=== PATIENT | female | born 1985 ===

== ENCOUNTER 2023-10-24 16:20 | Outpatient (CLI) | payer OTHER, SELFPAY ==
[2023-10-24 11:30] LABS: Abs Immature Grans 0.03 10^3/uL (0.0-0.06); Absolute Basophil Count 0.03 10^3/uL (0.0-0.2); Absolute Eosinophil Count 0.27 10^3/uL (0.0-0.7); Absolute Lymphocyte Count 2.01 10^3/uL (1.2-3.4); Absolute Monocyte Count 0.32 10^3/uL (0.1-0.8); Absolute Neutrophil Count 3.83 10^3/uL (1.2-6.7); Basophils % 0.5 %; Eosinophils % 4.2 %; HCT 39.3 % (36.0-46.0); Immature Grans % 0.5 %; MCH 30.3 pg (27.0-33.0); MCHC 33.1 % (32.0-36.0); MCV 92 fL (80-95); MPV 8.9 fL (8.0-11.0); Monocytes % 4.9 %; Neutrophils % 58.9 %; Platelet Count 414 10^3/uL (130-400); RBC 4.29 10^6/uL (3.93-5.22); RDW 12.6 % (11.7-14.6); WBC 6.49 10^3/uL (4.4-10.8)
[2023-10-24 12:16] LABS: ALT 20 U/L (14-59); AST 11 U/L (15-37); Albumin 3.7 g/dL (3.4-5.0); Alkaline Phosphatase 55 U/L (46-116); Anion Gap 8.5 mmol/L (3-11); BUN 11 mg/dL (7-18); Bilirubin, Total 0.13 mg/dL (0.2-1.0); CO2 27.5 mmol/L (21.0-32.0); CREATININE 0.8 mg/dL (0.55-1.02); Calculated LDL 87 mg/dL (<100); Chloride 103 mmol/L (98-107); Cholesterol 230 mg/dL (<200); Estimated GFR 95.46 (mL/min/1.73m2); Glucose 136 mg/dL (74-106); HDL Cholesterol 69 mg/dL (40-60); Magnesium 2.1 mg/dL (1.8-2.4); Sodium 139 mmol/L (136-145); Total Protein 7.9 g/dL (6.4-8.2); Triglyceride 371 mg/dL (<150)
== END 2023-10-24 16:21 | disposition home or self-care (01) ==
PROVIDERS: Visit Provider Student in an Organized Health Care Education/Training Program
DX: L50.1 Idiopathic urticaria (principal); Z51.81 Encounter for therapeutic drug level monitoring
CPT/HCPCS: 36415; 80053; 80061; 83735; 85025

== ENCOUNTER 2023-12-27 10:03 | Outpatient (CLI) | payer OTHER, SELFPAY ==
[2023-12-27 10:41] LABS: Abs Immature Grans 0.01 10^3/uL (0.0-0.06); Absolute Basophil Count 0.04 10^3/uL (0.0-0.2); Absolute Eosinophil Count 0.12 10^3/uL (0.0-0.7); Absolute Lymphocyte Count 1.97 10^3/uL (1.2-3.4); Absolute Monocyte Count 0.28 10^3/uL (0.1-0.8); Basophils % 0.8 %; Eosinophils % 2.4 %; HCT 39.7 % (36.0-46.0); HGB 13.1 g/dL (11.2-15.7); Immature Grans % 0.2 %; Lymphocytes % 39.2 %; MCH 30.3 pg (27.0-33.0); MCV 92 fL (80-95); MPV 8.8 fL (8.0-11.0); Monocytes % 5.6 %; Neutrophils % 51.8 %; Platelet Count 436 10^3/uL (130-400); RBC 4.32 10^6/uL (3.93-5.22); RDW-SD 40.5 fL; WBC 5.02 10^3/uL (4.4-10.8)
[2023-12-27 11:02] LABS: ALT 19 U/L (14-59); AST 13 U/L (15-37); Albumin 3.8 g/dL (3.4-5.0); Alkaline Phosphatase 63 U/L (46-116); BUN 11 mg/dL (7-18); Bilirubin, Total 0.52 mg/dL (0.2-1.0); Calcium 9.4 mg/dL (8.5-10.1); Calculated LDL 161 mg/dL (<100); Chloride 102 mmol/L (98-107); Cholesterol 269 mg/dL (<200); Estimated GFR 73.04 (mL/min/1.73m2); Glucose 123 mg/dL (74-106); HDL Cholesterol 78 mg/dL (40-60); Magnesium 2.2 mg/dL (1.8-2.4); Sodium 139 mmol/L (136-145); Total Protein 8.1 g/dL (6.4-8.2); Triglyceride 153 mg/dL (<150)
== END 2023-12-27 10:04 | disposition home or self-care (01) ==
LOC: LBO 10:04
PROVIDERS: Visit Provider Student in an Organized Health Care Education/Training Program
DX: Z51.81 Encounter for therapeutic drug level monitoring (principal); L50.1 Idiopathic urticaria
CPT/HCPCS: 36415; 80053; 80061; 83735; 85025

== ENCOUNTER 2024-02-06 10:14 | Outpatient (CLI) | payer OTHER, SELFPAY ==
[2024-02-08 12:11] LABS: HSV Type 1 Ab, IgG Positive (Negative); HSV Type 2 Ab, IgG Positive (Negative)
== END 2024-02-06 10:15 | disposition home or self-care (01) ==
LOC: LOS 10:15
PROVIDERS: Visit Provider Nurse Practitioner Family
DX: K13.70 Unspecified lesions of oral mucosa (principal); B00.1 Herpesviral vesicular dermatitis; K12.0 Recurrent oral aphthae
CPT/HCPCS: 36415; 86695; 86696

== ENCOUNTER 2024-05-30 00:25 | Outpatient (CLI) | payer MEDICAID, SELFPAY ==
--- NOTE | 2024-05-30 | DI.CT_ITS ---
Exam(s) CT LUMBAR SPINE WO EXAM: CT LUMBAR SPINE WO CLINICAL HISTORY: PARS DEFECT ON XRAY,M43.06,NEW ONSET SEVERE BACK PAIN,? DEFECT. TECHNIQUE: Imaging Protocol: Axial computed tomography images with coronal and sagittal reformatted images were created and reviewed COMPARISON: CR XR LUMBAR SPINE 4+ VIEWS from 05/28/2024 FINDINGS: Bones: The last intervertebral disc space is designated the L5/S1 level for the numbering purpose of this examination. The vertebral body heights are well maintained. 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 Alignment: No scoliosis. No significant spondylolisthesis. There is slight spondylolisthesis on the plain films which were performed in the standing position. T12-L1: No disc herniations or bulges are present. L1-2: No disc herniations or bulges are present. L2-3: No disc herniations or bulges are present. L3-4: No disc herniations or bulges are present. L4-5: No disc herniations or bulges are present. L5-S1: Mild loss of disc height. Mild disc bulging. Small central disc protrusion with superior ex trusion of disc material posterior to the L5 vertebral body. The visualized SI joints and sacrum are well maintained. Soft Tissues: The paraspinal soft tissues are unremarkable. The uterus is retroverted and shows an d anterior fibroid. IMPRESSION: Bilateral L5 spondylolysis. No spondylolisthesis visible on this supine exam. Small central disc protrusion at L5-S1 with superior extrusion of disc material. There is no definit e impingement on the thecal sac or nerve roots. No neural foraminal narrowing at any level. RADIATION DOSE DELIVERED: Total DLP DATA REPOSITORY: All CT scans at this facility are submitted to the National Radiology Data Registry (NRDR) Dose Index Registry (DIR) with the [employer] ([employer]). RADIATION OPTIMIZATION: All CT scans at this facility use at least one of these dose optimization te chniques: automated exposure control; mA and/or kV adjustment per patient size (includes targeted exa ms where dose is matched to clinical indication); or iterative reconstruction.
== END 2024-05-30 00:45 ==
LOC: DI 00:25
PROVIDERS: Visit Provider Internal Medicine Rheumatology
DX: M43.06 Spondylolysis, lumbar region (principal)
CPT/HCPCS: 72131

== ENCOUNTER 2024-09-04 09:51 | Outpatient (CLI) | payer OTHER, SELFPAY ==
[2024-09-04 09:55] LABS: Absolute Basophil Count 0.06 10^3/uL (0.0-0.2); Absolute Eosinophil Count 0.19 10^3/uL (0.0-0.7); Absolute Lymphocyte Count 2.44 10^3/uL (1.2-3.4); Absolute Monocyte Count 0.31 10^3/uL (0.1-0.8); Absolute Neutrophil Count 2.34 10^3/uL (1.2-6.7); Basophils % 1.1 %; Eosinophils % 3.6 %; HCT 41.3 % (36.0-46.0); HGB 13.7 g/dL (11.2-15.7); Lymphocytes % 45.7 %; MCH 29.7 pg (27.0-33.0); MCHC 33.2 % (32.0-36.0); MCV 89 fL (80-95); MPV 8.4 fL (8.0-11.0); Monocytes % 5.8 %; Neutrophils % 43.8 %; Platelet Count 449 10^3/uL (130-400); RBC 4.62 10^6/uL (3.93-5.22); RDW 11.9 % (11.7-14.6); RDW-SD 38.5 fL; WBC 5.34 10^3/uL (4.4-10.8)
[2024-09-04 10:32] LABS: ALT 28 U/L (14-59); AST 13 U/L (15-37); Albumin 4.1 g/dL (3.4-5.0); Alkaline Phosphatase 53 U/L (46-116); Anion Gap 10.9 mmol/L (3-11); BUN 10 mg/dL (7-18); Bilirubin, Total 0.5 mg/dL (0.2-1.0); CO2 27.1 mmol/L (21.0-32.0); CREATININE 1.1 mg/dL (0.55-1.02); Calcium 9.5 mg/dL (8.5-10.1); Calculated LDL 155 mg/dL (<100); Chloride 100 mmol/L (98-107); Cholesterol 262 mg/dL (<200); Estimated GFR 64.74 (mL/min/1.73m2); Glucose 94 mg/dL (74-106); HDL Cholesterol 75 mg/dL (>or=50); Sodium 138 mmol/L (136-145); Total Protein 8.4 g/dL (6.4-8.2); Triglyceride 163 mg/dL (<150)
== END 2024-09-04 09:52 | disposition home or self-care (01) ==
LOC: LBO 09:55
PROVIDERS: PCP Family Medicine; Visit Provider Student in an Organized Health Care Education/Training Program
DX: Z51.81 Encounter for therapeutic drug level monitoring (principal); L50.1 Idiopathic urticaria
CPT/HCPCS: 36415; 80053; 80061; 83735; 85025

== ENCOUNTER 2024-09-12 00:34 | Outpatient (CLI) | payer OTHER, SELFPAY ==
--- NOTE | 2024-09-12 | DI.MAMMO_ITS ---
Exam(s) MAMMO SCREENING EXAM: MAMMO SCREENING CLINICAL HISTORY: Baseline screening, Z12.31 TECHNIQUE: Mammograms were interpreted according to the usual protocol including computer analysis with CAD system, tomosynthesis and C-view imaging. COMPARISON: None. Baseline examination. FINDINGS: The breasts are composed of heterogeneously dense fibroglandular densities, Breast Density category C. No suspicious microcalcifications are seen. Benign-appearing calcifications are noted in the upper outer quadrant of the left breast. There is a question of an area of nodularity on the CC view in the lateral left breast, central depth versus overlying fibroglandular tissue. No skin thickening or abnormal axillary lymph nodes are seen. IMPRESSION: BI-RADS Category 0 - Incomplete: Need additional imaging evaluation, with spot compression views and ultrasound. Breast Density: Category C - The breasts are heterogeneously dense, which may obscure small masses. Breast density Category C or D implies that the patient has dense breast tissue. Dense breast tissue can make it harder to find cancer on a mammogram. Dense breast tissue is also associated with an increased risk of breast cancer. This information about the result of the mammogram report was provided to the patient to raise their awareness. Use this report when you speak with the patient about their risks for breast cancer, which includes their family history. At that time, you may recommend additional screening tests (Ultrasound or MRI) as these tests may add significant information. A negative radiographic report should not delay biopsy if a dominant or clinically suspicious mass is present. Up to ten percent of cancers are not identified on mammography. A negative report may reinforce clinical impression. Adenosis and dense breasts may obscure an underlying neoplasm. False positive reports average 6 to 10%.
== END 2024-09-12 00:54 ==
PROVIDERS: PCP Family Medicine; Visit Provider Family Medicine
DX: Z12.31 Encounter for screening mammogram for malignant neoplasm of breast (principal); R92.333 Mammographic heterogeneous density, bilateral breasts
CPT/HCPCS: 77063; 77067

== ENCOUNTER 2024-09-16 02:18 | Outpatient (CLI) | payer OTHER, SELFPAY ==
--- NOTE | 2024-09-16 09:15 | DI.US_ITS ---
Exam(s) MG MAMMO SCREEN CALL BACK UNI US BREAST LT LIMITED EXAM: MG MAMMO SCREEN CALL BACK UNI CLINICAL HISTORY: F/U MAMMO,? NODULARITY CC VIEW LAT LT BREAST,?OVERLYING FIBROGLANDULAR TISS. TECHNIQUE: Craniocaudal spot compression digital Mammography views of the leftbreast with Tomosynthesis and left breast ultrasound. COMPARISON: MG MG MAMMO SCREENING from 09/12/2024 US US BREAST LT LIMITED from 09/16/2024 FINDINGS: Mammography/Tomosynthesis: Masses: None seen. No persistent abnormality is identified. Fractures greater consistent with overlying fibroglandular tissue. Architectural Distortion: None seen. Microcalcifictions: No suspicious pleomorphic-type are seen. Skin Thickening/Nipple Retraction: None. Left breast US: Echotexture: Normal appearance of the glandular tissue. Shadowing: No suspicious foci. Cyst: None. Solid lesions: None seen. Ductal dilation: None. IMPRESSION: 1. No evidence of malignancy is noted. 2. Unless there is more urgent need, follow-up screening mammography is recommended, as per [employer] guidelines. 3. The findings were discussed with the patient on the date of the examination. BI-RADS Category 1 - Negative Breast Density - Category C - The breast are heterogeneously dense, which may obscure small masses. Breast density Category C or D implies that the patient has dense breast tissue. Dense breast tissue can make it harder to find cancer on a mammogram. Dense breast tissue is also associated with an increased risk of breast cancer. This information about the result of the mammogram report was provided to the patient to raise their awareness. Use this report when you speak with the patient about their risks for breast cancer, which includes their family history. At that time, you may recommend additional screening tests (Ultrasound or MRI) as these tests may add significant information. A negative radiographic report should not delay biopsy if a dominant or clinically suspicious mass is present. Up to ten percent of cancers are not identified on mammography. A negative report may reinforce clinical impression. Adenosis and dense breasts may obscure an underlying neoplasm. False positive reports average 6 to 10%. Patient will receive a letter notifying them of these results.
== END 2024-09-16 02:38 ==
PROVIDERS: PCP Family Medicine; Visit Provider Family Medicine
DX: Z12.31 Encounter for screening mammogram for malignant neoplasm of breast (principal); R92.333 Mammographic heterogeneous density, bilateral breasts
CPT/HCPCS: 76642; 77063; 77067

== ENCOUNTER 2025-02-23 13:23 | Outpatient (CLI) | payer OTHER, SELFPAY ==
[2025-02-23 14:55] LABS: Glucose Negative (Negative)
[2025-02-23 15:46] LABS: Creatine Kinase 72 U/L (34-145)
[2025-02-23 15:51] LABS: Ferritin 222 ng/mL (7-271); Vitamin D 25 Total 44 ng/mL (30-100)
[2025-02-23 16:45] LABS: Prot/Crea Ur Ratio 0.11 mg/mg Cr
[2025-02-24 10:25] LABS: HBs Antibody, Quant 618.2 mIU/mL (See Note); Hepatitis B Surface Ab Positive (See Note)
[2025-02-24 11:00] LABS: Hep B Core Antibody Negative (Negative)
[2025-02-24 11:01] LABS: Hepatitis C Ab w Rflx HCV PCR Negative (Negative)
[2025-02-24 12:10] LABS: RNP Ab, IgG <6.0 CU (<20.0); Ro60 Ab, IgG <7.0 CU (<20.0); SS-A/Ro, IgG <2.3 CU (<20.0); SS-B (La) Ab, IgG <3.3 CU (<20.0)
[2025-02-25 13:41] LABS: TB Interpretation Negative (Negative); TB1 Ag minus Nil 0.02 IU/mL; TB2 Ag minus Nil 0.01 IU/mL
[2025-02-25 14:28] LABS: Sm (Smith) Ab, IgG <0.2 U
[2025-02-26 19:56] LABS: Cryoglobulin, S Negative %ppt (Negative)
== END 2025-02-23 13:24 | disposition home or self-care (01) ==
LOC: LBO 13:26
PROVIDERS: PCP Family Medicine; Visit Provider Internal Medicine Rheumatology
DX: R21 Rash and other nonspecific skin eruption (principal); Z11.59 Encounter for screening for other viral diseases; M53.3 Sacrococcygeal disorders, not elsewhere classified; M25.50 Pain in unspecified joint; R76.89 Other specified abnormal immunological findings in serum; I77.6 Arteritis, unspecified; D75.839 Thrombocytosis, unspecified
CPT/HCPCS: 36415; 82306; 82550; 85613; 85732; 86147; 86704; 86706; 86803; 87116; 87340; 81003; 82565; 82595; 82728; 84156; 86160; 86225; 86235; 86255; 86480